=== PATIENT | female | born 1985 | race Caucasian/White ===

== ENCOUNTER 2017-08-08 17:23 | Emergency (ER) | payer MEDICAID ==
[~2017-08-08] VITALS: Ht 162.6 cm; Wt 59.0 kg
[2017-08-08 18:11] LABS: APPEARANCE,URINE CLOUDY; KETONES,URINE 1+ (NEGATIVE); LEUKOCYTE ESTERASE ,URINE 3+ (NEGATIVE); NITRITE,URINE NEGATIVE (NEGATIVE); PH,URINE 6.5 (4.5-8.0); PROTEIN,URINE 1+ (NEGATIVE); UROBILINOGEN,URINE 1 MG/DL (0.0-1.0)
[2017-08-08 18:20] LABS: WBC,URINE TNTC /HPF (0 - 2)
[2017-08-08 18:21] LABS: BACTERIA,URINE FEW /HPF; SQUAMOUS EPITHELIAL CELL,UR MODERATE /LPF (NONE/OCC)
[2017-08-08] MEDS ORDERED: GABAPENTIN800 MG ORAL (18:36)
[2017-08-08] MEDS ORDERED: NITROFURANTOIN100 M2 ORAL (18:36)
[2017-08-08] MEDS ORDERED: TOPIRAMATE25 MG ORAL (18:36)
[2017-08-08] MEDS ORDERED: OXCARBAZEPINE300 MG PO (18:36)
[2017-08-08] MEDS ORDERED: KEPPRA500 M3 ORAL (18:36)
[2017-08-08 19:24] VITALS: BP 112/67
[2017-08-08 19:25] VITALS: BP 112/67
--- NOTE | 2017-08-09 00:14 | Emergency Room Report ---
History of Present Illness General Chief Complaint: Female Urogenital Problems Source: Patient Present Illness HPI The patient is a 32 yo F presenting for UTI symptoms and medication refills. She states she takes multiple medications for seizure disorder and Suboxone for opiate withdrawal. She has been unable to establish a new PMD/ Psychiatrist. She noticed dysuria, increased frequency, and clear vaginal DC one week prior with no improvement. Pain described as an 8/10 burning sensation. She denies any other symptoms including N, V, F, chills, abd pain, vaginal DC, foul odor Allergies: Coded Allergies: NALTREXONE (Verified Allergy, Unknown, 08/08/17) Patient History Past Medical History: see triage record Pertinent Family History: none Social History: Reports: drug use - past Now: No Reviewed Nursing Documentation: PMH: Agreed, PSxH: Agreed Nursing Documentation-PMH Past Medical History: No Stated History Review of Systems All Other Systems: negative except mentioned in HPI Physical Exam Vital Signs Date Time Temp Pulse Resp B/P (MAP) Pulse Ox O2 Delivery O2 Flow Rate FiO2 08/08/17 17:34 97.9 64 20 112/67 100 Room Air Sp02 EP Interpretation: reviewed, normal General Appearance: no apparent distress, alert, GCS 15, non-toxic Head: normocephalic, atraumatic Eyes: bilateral eye normal inspection, bilateral eye PERRL ENT: hearing grossly normal, normal pharynx, no angioedema, normal voice Neck: full range of motion, supple/symm/no masses Respiratory: chest non-tender, lungs clear, normal breath sounds, speaking full sentences Cardiovascular #1: regular rate, rhythm, no edema Gastrointestinal: normal bowel sounds, non tender, soft, non-distended, no guarding, no rebound Genitourinary: normal inspection, no CVA tenderness Musculoskeletal: back normal, gait/station normal, normal range of motion, non- tender Neurologic: alert, oriented x3, responsive, motor strength/tone normal, sensory intact, speech normal Psychiatric: judgement/insight normal, memory normal, mood/affect normal, no suicidal/homicidal ideation Skin: normal color, no rash, warm/dry, well hydrated Medical Decision Making PA Attestation Dr. Mcgill is my supervising physician. Patient management was discussed with my supervising physician Diagnostic Impression: Primary Impression: Urinary tract infection Qualified Codes: N39.0 - Urinary tract infection, site not specified Additional Impression: Seizure disorder ER Course The patient is a 32 yo F presenting for UTI symptoms and medication refill Differential diagnosis considered but not limited to: UTI, BV, yeast infection, pyelonephritis, PID, , drug abuse, among others PE: Vitals WNL. NAD. Abdomen: Normal appearance. Non distended. No ecchymosis. Normal BS. Non tender. No McBurney point tenderness. No guarding. No CVA tenderness Urinalysis is consistent with urinary tract infection The patient discharged home with a prescription for Macrobid and refill of seizure medications. She needs to FU with psychiatrist for suboxone and further care. [facility] information given. Laboratory Tests Test 08/08/17 17:40 Urine Color Yellow Urine Appearance Cloudy Urine pH 6.5 (4.5-8.0) Urine Specific [place] 1.015 (1.005-1.035) Urine Protein 1+ (NEGATIVE) H Urine Glucose (UA) Negative (NEGATIVE) Urine Ketones 1+ (NEGATIVE) H Urine Occult Blood 1+ (NEGATIVE) H Urine Nitrite Negative (NEGATIVE) Urine Bilirubin Negative (NEGATIVE) Urine Urobilinogen 1 MG/DL (0.0-1.0) H Urine Leukocyte Esterase 3+ (NEGATIVE) H Urine RBC 5-10 /HPF (0 - 2) H Urine WBC Tntc /HPF (0 - 2) H Urine Squamous Epithelial Cells Moderate /LPF (NONE/OCC) H Urine Bacteria Few /HPF (NONE) Urine HCG, Qualitative Negative Lab Results Impression Consistent with UTI Last Vital Signs Date Time Temp Pulse Resp B/P (MAP) Pulse Ox O2 Delivery O2 Flow Rate FiO2 08/08/17 19:25 97.9 65 20 112/67 100 Room Air Status: improved Disposition: HOME, SELF-CARE Condition: Improved Scripts Topiramate* (TOPAMAX*) 25 Mg Tablet 25 MG ORAL TWICE A DAY, #60 TAB 0 Refills Prov: TERZIAN,EDILBERTO P.A. 08/08/17 Oxcarbazepine (OXCARBAZEPINE) 300 Mg Tablet 300 MG PO TID, #90 TAB Prov: TERZIAN,EDILBERTO P.A. 08/08/17 Gabapentin* (GABAPENTIN*) 800 Mg Tablet 800 MG ORAL THREE TIMES A DAY, #90 TAB Prov: TERZIAN,EDILBERTO P.A. 08/08/17 Levetiracetam (Levetiracetam) 500 Mg Tablet 500 MG ORAL TWICE A DAY, #60 TAB 0 Refills Prov: EDILBERTO FREEDMAN 08/08/17 Nitrofurantoin Monohyd/M-Cryst* (MACROBID 100 MG*) 100 Mg Capsule 100 MG ORAL EVERY 12 HOURS, #14 CAP Prov: EDILBERTO FREEDMAN 08/08/17 Patient Instructions: Urinary Tract Infection, Seizure, Adult Additional Instructions: I discussed my findings with the patient. All questions and concerns have been answered. Treatment and medication compliance have been addressed. I advised the patient that they need to follow up with PMD in 3-5 days. Return to ED if symptoms worsen, new symptoms arise, or if needed for any reason. Patient verbalized understanding of discharge instructions. Please follow up with psychiatrist as discussed. Information regarding [email or web address] mental health facilty given. EDILBERTO FREEDMAN Aug 09, 2017 00:14
== END 2017-08-08 19:26 | disposition home or self-care (01) ==
LOC: EMR 17:55
DX: N39.0 Urinary tract infection, site not specified (principal); G40.909 Epilepsy, unspecified, not intractable, without status epilepticus
CPT/HCPCS: 81003; 81025; 87086; 99284

== ENCOUNTER 2017-09-23 18:17 | Emergency (ER) | payer MEDICAID ==
[~2017-09-23] VITALS: Ht 160 cm; Wt 54.4 kg
[~2017-09-23 18:17] MED LIST: GABAPENTIN800 MG ORAL; KEPPRA500 M3 ORAL; NITROFURANTOIN100 M2 ORAL; OXCARBAZEPINE300 MG PO; TOPIRAMATE25 MG ORAL
[2017-09-23 18:28] VITALS: BP 108/66
--- NOTE | 2017-09-23 18:43 | Emergency Room Report ---
History of Present Illness General Chief Complaint: Laceration Source: Patient Present Illness HPI 32-year-old female presents to the emergency department complaining of abrasion that was sustained one week ago which has had progressive erythema, tenderness and crusting. Patient states that her wound is located on the left inner thigh/ buttock region. Patient states she was out hiking when she slipped and sustained abrasion on the travel. Patient does not know when her last tetanus vaccination was. Patient denies fevers, chills, nausea, vomiting. Patient denies bony pain. She denies hitting her head or loss of consciousness. denies bleeding at this time. Pt reports hx of frequent skin infections, denies hx of immune compromise of pertinent medical hx. Allergies: Coded Allergies: NALTREXONE (Verified Allergy, Unknown, 08/08/17) Patient History Past Medical History: see triage record Past Surgical History: none Pertinent Family History: none Reviewed Nursing Documentation: PMH: Agreed, PSxH: Agreed Review of Systems All Other Systems: negative except mentioned in HPI Physical Exam Vital Signs Date Time Temp Pulse Resp B/P (MAP) Pulse Ox O2 Delivery O2 Flow Rate FiO2 09/23/17 18:20 98.2 64 20 108/66 99 Room Air Sp02 EP Interpretation: reviewed, normal General Appearance: no apparent distress, alert, GCS 15, non-toxic Head: normocephalic, atraumatic Eyes: bilateral eye normal inspection, bilateral eye PERRL ENT: hearing grossly normal, normal voice Neck: full range of motion Respiratory: lungs clear, normal breath sounds, speaking full sentences Cardiovascular #1: regular rate, rhythm Musculoskeletal: back normal, gait/station normal, normal range of motion, non- tender Neurologic: alert, oriented x3, responsive, motor strength/tone normal, sensory intact, speech normal Skin: warm/dry, well hydrated, abrasions - abrasion to the left buttock/ upper posterior/medial thigh with surrounding erythema, crusting, and increased temperature to palpation. Lymphatic: no adenopathy Medical Decision Making PA Attestation Dr. Gurrola is my supervising Physician whom patient management has been discussed with. Diagnostic Impression: Primary Impression: Cellulitis Qualified Codes: L03.317 - Cellulitis of buttock Additional Impression: Abrasion ER Course 32-year-old female presents to the emergency department complaining of abrasion that was sustained one week ago which has had progressive erythema, tenderness and crusting. Patient states that her wound is located on the left inner thigh/ buttock region. Patient states she was out hiking when she slipped and sustained abrasion on the travel. Patient does not know when her last tetanus vaccination was. Patient denies fevers, chills, nausea, vomiting. Patient denies bony pain. She denies hitting her head or loss of consciousness. denies bleeding at this time. Pt reports hx of frequent skin infections, denies hx of immune compromise of pertinent medical hx. Ddx considered but are not limited to cellulitis, laceration, abrasion fracture , d/L just to name a few. Vital signs: are WNL, pt. is afebrile H&PE are most consistent with cellulitis of skin abrasion. ORDERS: none required at this time, the diagnosis is clinical ED INTERVENTIONS: -Tdap Vaccination is administered. - Wound cleaning, Bacitracin and sterile dressing applied by environmental technical officer. DISCHARGE: At this time pt. is stable for d/c to home. Will provide printed patient care instructions, and any necessary prescriptions. Care plan and follow up instructions have been discussed with the patient prior to discharge. Last Vital Signs Date Time Temp Pulse Resp B/P (MAP) Pulse Ox O2 Delivery O2 Flow Rate FiO2 09/23/17 18:20 98.2 64 20 108/66 99 Room Air Disposition: HOME, SELF-CARE Condition: Stable Scripts Acetaminophen* (TYLENOL EXTRA STRENGTH*) 500 Mg Tablet 500 MG ORAL Q6H, #20 TAB 0 Refills Prov: Kerry Osborne P.A. 09/23/17 Trimethoprim/Sulfamethoxazole (Bactrim Ds Tablet) 1 Each Tablet 1 TAB ORAL TWICE A DAY for 7 Days, #14 TAB Prov: Kerry Osborne P.A. 09/23/17 Cephalexin* (KEFLEX*) 500 Mg Capsule 500 MG ORAL EVERY 12 HOURS for 7 Days, #14 CAP 0 Refills Prov: Kerry Osborne P.A. 09/23/17 Mupirocin Calcium (Bactroban) 15 Gm Cream..g. 1 APPLIC TOPIC THREE TIMES A DAY, #15 GM Prov: Kerry Osborne P.A. 09/23/17 Patient Instructions: Cellulitis Additional Instructions: Take medications as directed. Follow up with a Primary Care Provider in 3-5 days, even if your symptoms have resolved. --Please review list of primary care clinics, if you do not already have a primary care provider Return sooner to ED if new symptoms occur, or current symptoms become worse. - Please note that this Emergency Department Report was dictated using [employer] pan tender technology software, occasionally this can lead to erroneous entry secondary to interpretation by the dictation equipment. Kerry Osborne Sep 23, 2017 18:43
[2017-09-23] MEDS ORDERED: CEPHALEXIN500 MG ORAL (18:45)
[2017-09-23] MEDS ORDERED: BACTRIM-DS1 EA ORAL (18:45)
[2017-09-23] MEDS ORDERED: BACTROBAN CR1 APPLIC TOPIC (18:45)
[2017-09-23] MEDS ORDERED: Bacitracin Oint UD TOPIC ONE ×2 (18:45→19:30)
[2017-09-23] MEDS ORDERED: Tetanus/Diptheria/Pertussis Vaccine 0.5ml Syr IM ONE (18:45)
[2017-09-23] MEDS ORDERED: TYLENOL EXTRA500 MG ORAL (18:45)
[2017-09-23 19:27] VITALS: BP 108/66
== END 2017-09-23 19:29 | disposition home or self-care (01) ==
LOC: EMR 18:58
DX: S30.810D Abrasion of lower back and pelvis, subsequent encounter (principal); S70.312D Abrasion, left thigh, subsequent encounter; L03.114 Cellulitis of left upper limb; L03.317 Cellulitis of buttock; X58.XXXD Exposure to other specified factors, subsequent encounter; Z23 Encounter for immunization
CPT/HCPCS: 90471; 90715; 99284

== ENCOUNTER 2017-10-27 01:07 | Emergency (ER) | payer MEDICAID, OTHER ==
[~2017-10-27] VITALS: Ht 162.6 cm; Wt 55.8 kg
[~2017-10-27 01:07] MED LIST changes: +BACTRIM-DS1 EA ORAL; +BACTROBAN CR1 APPLIC TOPIC; +CEPHALEXIN500 MG ORAL; +TYLENOL EXTRA500 MG ORAL
[2017-10-27] MEDS ORDERED: DOXYCYCLINE MO100 MG ORAL (01:56)
[2017-10-27] MEDS ORDERED: FLUCONAZOLE100 MG ORAL (01:56)
--- NOTE | 2017-10-27 01:57 | Emergency Room Report ---
History of Present Illness General Chief Complaint: Skin Rash/Abscess Source: Patient Present Illness HPI This is a 32-year-old female with a history of heroin abuse currently on Suboxone. She also history of recurrent abscess. She has swelling to the lower back for the last 3 days. Worse today. No fever chills pain for the touch. Denies any other complaint. Allergies: Coded Allergies: NALTREXONE (Verified Allergy, Unknown, 08/08/17) Patient History Past Medical History: see triage record, old chart reviewed Past Surgical History: none Pertinent Family History: none Social History: Reports: drug use - history of heroin abuse Last Menstrual Period: 10/20/17 Now: No : 1 Para: 0 Immunizations: other Reviewed Nursing Documentation: PMH: Agreed, PSxH: Agreed Nursing Documentation-PMH Past Medical History: No Stated History Hx Seizures: Yes Review of Systems Eye: Denies: eye pain, blurred vision ENT: Denies: ear pain, nose congestion, throat swelling Respiratory: Denies: cough, shortness of breath Cardiovascular: Denies: chest pain, palpitations Gastrointestinal: Denies: abdominal pain, diarrhea, nausea, vomiting Musculoskeletal: Denies: back pain, joint pain Skin: Denies: rash Neurological: Denies: headache, numbness Endocrine: Denies: increased thirst, increased urine Hematologic/Lymphatic: Denies: easy bruising All Other Systems: negative except mentioned in HPI Physical Exam Vital Signs Date Time Temp Pulse Resp B/P (MAP) Pulse Ox O2 Delivery O2 Flow Rate FiO2 10/27/17 01:16 99.3 80 15 113/71 100 Room Air vitals normal Sp02 EP Interpretation: reviewed, normal General Appearance: well appearing, no apparent distress, alert Head: normocephalic, atraumatic Eyes: bilateral eye PERRL, bilateral eye EOMI ENT: hearing grossly normal, normal pharynx Neck: full range of motion, supple, no meningismus Respiratory: chest non-tender, lungs clear, normal breath sounds Cardiovascular #1: regular rate, rhythm, no murmur Gastrointestinal: normal bowel sounds, non tender, no mass, no organomegaly, no bruit, non-distended Musculoskeletal: gait/station normal, normal range of motion, other - Lower back midline: Erythematous area of 4 centimeter. Indurated area of 3 cm. Tender to palpation. Slightly warm to the Psychiatric: mood/affect normal Skin: warm/dry Procedures Incision and Drainage Incision and Drainage : Consent: Verbal Site: Lower back Blade Size: 11 I & D Procedure: betadine prep, sterile drapes applied, sterile dressing applied, gauze wick placed Wound Location: back Anesthesia: 1% Lidocaine Volume Anesthetic (ccs): 5 Patient Tolerated: Well Complications: None Progress Area clean with chlorhexidine. Localized with 1% lidocaine. I made a 2 cm incision. There is only scant amount of pus expressed. Mostly blood. Loculated area broken up with a forcep. Area packed. Medical Decision Making Diagnostic Impression: Primary Impression: Abscess ER Course Patient with an abscess to the lower back. Most likely MRSA since she had it before. Said that she does not respond very well to Bactrim. Said that she may have a UTI also. Last Vital Signs Date Time Temp Pulse Resp B/P (MAP) Pulse Ox O2 Delivery O2 Flow Rate FiO2 10/27/17 01:16 99.3 80 15 113/71 100 Room Air Status: improved Disposition: HOME, SELF-CARE Condition: Stable Scripts Fluconazole (FLUCONAZOLE) 100 Mg Tablet 100 MG ORAL DAILY, #1 TAB 0 Refills Prov: VANIA MARIE M.D. 10/27/17 Doxycycline Monohydrate* (DOXYCYCLINE MONOHYDRATE*) 100 Mg Capsule 100 MG ORAL Q12H, #14 CAP 0 Refills Prov: VANIA MARIE M.D. 10/27/17 Patient Instructions: Abscess Additional Instructions: Followup in 2 days for packing removal. Return if symptom worsen. VANIA MARIE M.D. Oct 27, 2017 01:57
[2017-10-27] MEDS ORDERED: IBUPROFEN600 MG ORAL (02:05)
[2017-10-27 02:07] VITALS: BP 113/71
[2017-10-27] MEDS ORDERED: Bacitracin Oint UD TOPIC ONE (03:21)
== END 2017-10-27 02:07 | disposition home or self-care (01) ==
LOC: EMR 01:25
DX: L02.212 Cutaneous abscess of back [any part, except buttock and flank] (principal); Z88.8 Allergy status to other drugs, medicaments and biological substances; F11.10 Opioid abuse, uncomplicated
CPT/HCPCS: 10060; 99283

== ENCOUNTER 2017-10-29 13:53 | Emergency (ER) | payer OTHER ==
[~2017-10-29] VITALS: Ht 162.6 cm; Wt 56.7 kg
[~2017-10-29 13:53] MED LIST changes: +DOXYCYCLINE MO100 MG ORAL; +FLUCONAZOLE100 MG ORAL; +IBUPROFEN600 MG ORAL
[2017-10-29] MEDS ORDERED: GABAPENTIN800 MG ORAL (14:24)
[2017-10-29] MEDS ORDERED: KEPPRA500 MG ORAL (14:24)
[2017-10-29 15:33] LABS: APPEARANCE,URINE SLIGHTLY CLOUDY; KETONES,URINE 1+ (NEGATIVE); LEUKOCYTE ESTERASE ,URINE 3+ (NEGATIVE); NITRITE,URINE POSITIVE (NEGATIVE); PH,URINE 5 (4.5-8.0); PROTEIN,URINE 2+ (NEGATIVE); UROBILINOGEN,URINE 1 MG/DL (0.0-1.0)
[2017-10-29 15:36] LABS: ICTOTEST NEGATIVE
[2017-10-29] MEDS ORDERED: Ketorolac 60mg Inj IM ONE (15:45)
--- NOTE | 2017-10-29 15:58 | Emergency Room Report ---
History of Present Illness General Chief Complaint: Wound Recheck/Suture Removal Source: Patient Present Illness HPI 32 -year-old female presents to the emergency department complaining of recently incised and drained abscess to the low back 2 days ago she reports that she was to return to the emergency department for wound evaluation. Patient states she's been taking her antibiotics as prescribed. Patient reports that she has some dysuria and believes she may have a UTI. Patient denies fevers, chills, hematuria or abdominal pain. Patient denies . Denies CP, Palpitations, LOC, AMS, dizziness, Changes in Vision, Sensation, paresthesias, or a sudden severe headache. Allergies: Coded Allergies: NALTREXONE (Verified Allergy, Unknown, 08/08/17) Patient History Past Medical History: see triage record Past Surgical History: none Pertinent Family History: none Last Menstrual Period: 2 weeks ago Reviewed Nursing Documentation: PMH: Agreed, PSxH: Agreed Nursing Documentation-PMH Past Medical History: No History, Except For Hx Seizures: Yes Review of Systems All Other Systems: negative except mentioned in HPI Physical Exam Vital Signs Date Time Temp Pulse Resp B/P (MAP) Pulse Ox O2 Delivery O2 Flow Rate FiO2 10/29/17 14:20 98.1 61 16 103/69 100 Room Air Medical Decision Making PA Attestation Dr. hunter is my supervising Physician whom patient management has been discussed with. Diagnostic Impression: Primary Impression: Encounter for wound re-check Additional Impression: Urinary tract infection Qualified Codes: N30.00 - Acute cystitis without hematuria ER Course 32 YO Female presents to the ED c/o pain, swelling, and erythema of gluteal cleft area with previously incised abscess 2 days ago for which packing was placed. Patient reports continued drainage. She's been taking her antibiotics clindamycin. She also reports dysuria and states she believes she has a UTI. Denies low back pain, fevers or chills. Denies CP, Palpitations, LOC, AMS, dizziness, Changes in Vision, Sensation, paresthesias, or a sudden severe headache. Ddx considered but are not limited to cellulitis, abscess, cystic acne, necrotizing fasciitis, insect bite , UTI Vital signs: are WNL, pt. is afebrile H&PE are most consistent with healing previously incised abscess. ORDERS: -UA: NITRITE POSITIVE- indicating UTI ED INTERVENTIONS: -wound packing removed. -Sterile dressing applied. d/w pt. to continue taking po abx and to look for signs of infection . DISCHARGE: At this time pt. is stable for d/c to home. Will provide printed patient care instructions, and any necessary prescriptions. Care plan and follow up instructions have been discussed with the patient prior to discharge. Labs Test 10/29/17 15:00 Urine Color J[place] Urine Appearance Slightly cloudy Urine pH 5 (4.5-8.0) Urine Specific [place] 1.025 (1.005-1.035) Urine Protein 2+ (NEGATIVE) Urine Glucose (UA) Negative (NEGATIVE) Urine Ketones 1+ (NEGATIVE) Urine Occult Blood Negative (NEGATIVE) Urine Nitrite Positive (NEGATIVE) Urine Bilirubin Negative (NEGATIVE) Urine Ictotest Negative Urine Urobilinogen 1 MG/DL (0.0-1.0) Urine Leukocyte Esterase 3+ (NEGATIVE) Last Vital Signs Date Time Temp Pulse Resp B/P (MAP) Pulse Ox O2 Delivery O2 Flow Rate FiO2 10/29/17 14:20 98.1 61 16 103/69 100 Room Air Disposition: HOME, SELF-CARE Condition: Stable Scripts Nitrofurantoin Monohyd/M-Cryst* (MACROBID 100 MG*) 100 Mg Capsule 100 MG ORAL EVERY 12 HOURS for 5 Days, #10 CAP Prov: Kerry Osborne 10/29/17 Patient Instructions: Urinary Tract Infection, [id number], Wound Check Additional Instructions: Take medications as directed. Follow up with a Primary Care Provider in 3-5 days, even if your symptoms have resolved. --Please review list of primary care clinics, if you do not already have a primary care provider Return sooner to ED if new symptoms occur, or current symptoms become worse. - Please note that this Emergency Department Report was dictated using [employer] and sensing technician technology software, occasionally this can lead to erroneous entry secondary to interpretation by the dictation equipment. Kerry Osborne Oct 29, 2017 15:58
[2017-10-29] MEDS ORDERED: NITROFURANTOIN100 M2 ORAL (15:59)
[2017-10-29 16:07] LABS: BACTERIA,URINE FEW /HPF; RBC,URINE 0-2 /HPF (0 - 2); SQUAMOUS EPITHELIAL CELL,UR MANY /LPF (NONE/OCC)
[2017-10-29 16:19] VITALS: BP 111/75
== END 2017-10-29 17:00 | disposition home or self-care (01) ==
LOC: EMR 16:31
DX: L02.31 Cutaneous abscess of buttock (principal); Z48.02 Encounter for removal of sutures; N39.0 Urinary tract infection, site not specified; Z86.69 Personal history of other diseases of the nervous system and sense organs
CPT/HCPCS: 81003; 87086; 87181; 99283

== ENCOUNTER 2017-12-05 11:26 | Emergency (ER) | payer MEDICAID, OTHER ==
[~2017-12-05] VITALS: Ht 162.6 cm; Wt 54.4 kg
[~2017-12-05 11:26] MED LIST changes: +KEPPRA500 MG ORAL
--- NOTE | 2017-12-05 12:29 | Emergency Room Report ---
History of Present Illness General Chief Complaint: Abdominal Pain Source: Patient Present Illness Allergies: Coded Allergies: NALTREXONE (Verified Allergy, Unknown, 08/08/17) Patient History Past Medical History: see triage record Last Menstrual Period: 11/14/17 Reviewed Nursing Documentation: PMH: Agreed, PSxH: Agreed Nursing Documentation-PMH Past Medical History: No History, Except For Hx Seizures: Yes Review of Systems All Other Systems: negative except mentioned in HPI Physical Exam Vital Signs Date Time Temp Pulse Resp B/P (MAP) Pulse Ox O2 Delivery O2 Flow Rate FiO2 12/05/17 11:41 98.2 65 18 106/61 100 Room Air Sp02 EP Interpretation: reviewed, normal General Appearance: no apparent distress, alert, non-toxic Head: normocephalic Eyes: bilateral eye normal inspection, bilateral eye PERRL, bilateral eye EOMI ENT: normal ENT inspection, hearing grossly normal, normal pharynx, no angioedema, normal voice, moist mucus membranes Neck: normal inspection, full range of motion, supple, supple/symm/no masses Respiratory: chest non-tender, lungs clear, normal breath sounds, chest symmetrical, palpation of chest normal Cardiovascular #1: normal peripheral pulses, regular rate, rhythm Cardiovascular #2: 2+ radial (R), 2+ radial (L) Gastrointestinal: normal inspection, non tender, soft, no mass, no guarding, no rebound Rectal: deferred Genitourinary: normal inspection, no CVA tenderness Musculoskeletal: back normal, gait/station normal, normal range of motion, non- tender, no calf tenderness Neurologic: alert, responsive, drop forge operator III-XII nml as tested, motor strength/tone normal, sensory intact, speech normal Psychiatric: judgement/insight normal, memory normal, mood/affect normal, no suicidal/homicidal ideation Skin: normal color, no rash, warm/dry, normal turgor Lymphatic: no adenopathy Medical Decision Making Diagnostic Impression: Primary Impression: Ovarian cyst ER Course Patient was symptomatic ovarian cyst Normal labs Normal urine tests and test Patient feels better after getting analgesics Serial abdominal exams still soft nontender The patient understands and agrees CT/MRI/US Diagnostic Results CT/MRI/US Diagnostic Results : Impression uultrasound shows ovarian cyst good flow to both ovaries small amount of free fluid Last Vital Signs Date Time Temp Pulse Resp B/P (MAP) Pulse Ox O2 Delivery O2 Flow Rate FiO2 12/05/17 11:41 98.2 65 18 106/61 100 Room Air Status: improved Disposition: HOME, SELF-CARE Condition: Stable SANTOS KRISHNA M.D Dec 05, 2017 12:29
[2017-12-05] MEDS ORDERED: Dicyclomine 10mg Cap ORAL ONE (12:30)
[2017-12-05 12:41] VITALS: BP 109/62
[2017-12-05 12:50] LABS: BASOPHILS % (AUTO) 1.1 % (0.0-2.0); EOSINOPHILS % (AUTO) 0.4 % (0.0-3.0); HEMATOCRIT 42.4 % (37.0-47.0); HEMOGLOBIN 14.2 G/DL (12.0-16.0); LYMPHOCYTES % (AUTO) 31.1 % (20.0-45.0); MEAN CORPUSCULAR VOLUME 90 FL (80-99); MONOCYTES % (AUTO) 4.6 % (1.0-10.0); NEUTROPHILS % (AUTO) 62.8 % (45.0-75.0); PLATELET COUNT 191 K/UL (150-450); RED BLOOD COUNT 4.69 M/UL (4.20-5.40); RED CELL DISTRIBUTION WIDTH 11.2 % (11.6-14.8); WHITE BLOOD COUNT 6.1 K/UL (4.8-10.8)
[2017-12-05 13:01] LABS: ANION GAP 11 mmol/L (5-15); BLOOD UREA NITROGEN 20 mg/dL (7-18); CALCIUM 9.1 MG/DL (8.5-10.1); CARBON DIOXIDE 23 MMOL/L (21-32); CHLORIDE 106 MMOL/L (98-107); CREATININE 0.8 MG/DL (0.55-1.30); POTASSIUM 3.8 MMOL/L (3.5-5.1); SODIUM 140 MMOL/L (136-145)
[2017-12-05 13:06] LABS: ALANINE AMINOTRANSFERASE 26 U/L (12-78); ALBUMIN 4.5 G/DL (3.4-5.0); ALBUMIN/GLOBULIN RATIO 1.5 (1.0-2.7); ALKALINE PHOSPHATASE 77 U/L (46-116); ASPARTATE AMINO TRANSFERASE 26 U/L (15-37); BILIRUBIN,TOTAL 0.3 MG/DL (0.2-1.0)
[2017-12-05] MEDS ORDERED: IBUPROFEN600 MG ORAL (14:30)
--- NOTE | 2017-12-05 14:32 | Diagnostic Imaging Report ---
Indication: Pelvic pain, negative serum test Technique: Transabdominal and transvaginal images Comparison: none Findings: Uterus measures 8 cm length by 5 cm AP. The endometrium measures 13 mm thick. No myometrial abnormality. There is a cervical nabothian cyst. The right ovary measures 4.3 cm in length. The left ovary measures 3.1 cm in length. No adnexal mass. Normal blood flow. There is trace free cul-de-sac fluid demonstrated. Impression: Essentially unremarkable exam Trace free cul-de-sac fluid, most likely physiologic Incidental finding of a cervical nabothian cyst
[2017-12-05] MEDS ORDERED: Ketorolac 30mg Inj IV ONE (15:00)
[2017-12-05] MEDS ORDERED: TORADOL60 MG/2 ML PO (15:01)
[2017-12-05] MEDS ORDERED: TORADOL10 MG PO (15:01)
[2017-12-05] MEDS ORDERED: Ketorolac 30mg Inj IM ONE (15:30)
[2017-12-05 15:34] VITALS: BP 109/62
== END 2017-12-05 15:30 | disposition home or self-care (01) ==
LOC: EMR 12:40
DX: N83.209 Unspecified ovarian cyst, unspecified side (principal); N88.8 Other specified noninflammatory disorders of cervix uteri
CPT/HCPCS: 36415; 76856; 80053; 83690; 84702; 85025; 96372; 96374; 96375; 99284; J1885; J2405